=== PATIENT | female | born 1995 | race Caucasian/White ===

== ENCOUNTER 2017-02-04 00:21 | Emergency (ER) | payer MEDICAID, OTHER ==
[~2017-02-04] VITALS: Ht 172.7 cm; Wt 102.5 kg
[2017-02-04] MEDS ORDERED: PANTOPRAZOLE SODIUM 40 MG/VIAL IV STA (01:29)
[2017-02-04] MEDS ORDERED: MORPHINE SULFATE 4 MG/ML CPJ (NOT FOR IM USE) IV STA (01:29)
[2017-02-04] MEDS ORDERED: SODIUM CHLORIDE 0.9% 1,000 ML IV ONE (01:29)
[2017-02-04] MEDS ORDERED: ONDANSETRON HCL 4MG/2ML VIAL IV STA (01:29)
[2017-02-04 01:54] LABS: BASOPHILS % 0.5 % (0.0-2.0); EOSINOPHILS % 0.9 % (0.0-5.0); HEMATOCRIT. 35.2 % (36.0-48.0); LYMPHOCYTES % 28.6 % (20.0-50.0); MEAN CORPUSCULAR HGB CONC 34.1 g/dL (31.0-37.0); MEAN CORPUSCULAR VOLUME 84.8 fL (81.0-99.0); MEAN PLATELET VOLUME 8.7 fl (7.4-10.4); PLATELET 289 x1000/uL (130-400); RED BLOOD CELL COUNT 4.15 mill/uL (4.2-5.4); RED CELL DISTRIBUTION WIDTH 15.5 % (11.6-14.6); WHITE BLOOD COUNT 8.9 x1000/uL (4.5-11.0)
[2017-02-04 01:58] LABS: INR 1.1
[2017-02-04 01:59] LABS: CHLORIDE 106 mEq/L (98-107); INDEX HEMOLYSI 1 (1-3); INDEX ICTERIC 1 (1-4); INDEX LIPEMIC 1 (1-3)
[2017-02-04 02:00] LABS: HCG SCREEN NEGATIVE
[2017-02-04 02:07] LABS: ALANINE AMINOTRANSFERASE 66 IU/L (13-61); ALBUMIN 3.6 g/dL (3.4-5.0); ANION GAP 13; CALCIUM 8.4 mg/dL (8.5-10.1); CARBON DIOXIDE 27 mEq/L (21-32); LIPASE 179 IU/L (73-393); UREA NITROGEN BLOOD 10 mg/dL (7-21); eGFR > 60 mL/min (>60)
[2017-02-04] MEDS ORDERED: ONDANSETRON HCL 4MG/2ML VIAL IM ONE (06:00)
[2017-02-04] MEDS ORDERED: MORPHINE SULFATE 4 MG/ML CPJ (NOT FOR IM USE) IV ONE (06:00)
[2017-02-04 06:22] VITALS: BP 115/58
== END 2017-02-04 08:16 | disposition home or self-care (01) ==
LOC: ER 00:23
DX: R10.11 Right upper quadrant pain (principal); R10.13 Epigastric pain
CPT/HCPCS: 36415; 76705; 80053; 83690; 84703; 85025; 85610; 96361; 96374; 96375; 96376; 99285; C9113; J2270; J2405; J7030

== ENCOUNTER 2017-04-06 22:15 | Emergency (ER) | payer MEDICAID ==
[~2017-04-06] VITALS: Ht 170.2 cm; Wt 98.0 kg
[2017-04-06 22:33] VITALS: BP 123/66
== END 2017-04-07 00:50 | disposition left against medical advice (07) ==
LOC: ER 22:15
DX: S01.511A Laceration without foreign body of lip, initial encounter (principal); Z53.21 Procedure and treatment not carried out due to patient leaving prior to being seen by health care provider; X58.XXXA Exposure to other specified factors, initial encounter; Y93.39 Activity, other involving climbing, rappelling and jumping off; Y92.89 Other specified places as the place of occurrence of the external cause; Y99.8 Other external cause status

== ENCOUNTER 2025-06-08 07:06 | Emergency (ER) | payer MEDICAID ==
[~2025-06-08] VITALS: Ht 172.7 cm; Wt 100.0 kg
[2025-06-08 07:08] VITALS: O2SAT 98
[2025-06-08] MEDS: SODIUM CHLORIDE 0.9% 1,000 ML IV ONE (07:42)
[2025-06-08] MEDS: MORPHINE SULFATE 4 MG/ML INJ (FOR IV/IM USE) IV ONE (07:43)
[2025-06-08] MEDS: ONDANSETRON HCL 4MG/2ML INJ IV ONE (07:43)
[2025-06-08 08:06] LABS: BASOPHILS % 0.8 % (0.0-2.0); EOSINOPHILS % 2.6 % (0.0-5.0); HEMATOCRIT. 36.4 % (36.0-48.0); HEMOGLOBIN. 12.5 g/dL (12.0-16.0); LYMPHOCYTES % 47.3 % (20.0-50.0); MEAN PLATELET VOLUME 7.7 fl (7.4-10.4); MONOCYTES % 8.7 % (2.0-8.0); NEUTROPHILS % 40.6 % (40.0-76.0); PLATELET 328 x1000/uL (130-400); RED BLOOD CELL COUNT 3.94 mill/uL (4.2-5.4); RED CELL DISTRIBUTION WIDTH 13.3 % (11.6-14.6)
[2025-06-08 08:16] LABS: CREATININE 0.6 mg/dL (0.6-1.0)
[2025-06-08 08:17] LABS: UREA NITROGEN BLOOD 17 mg/dL (9-23)
[2025-06-08 08:18] LABS: ASPARTATE AMINOTRANSFERASE 17 IU/L (<34)
[2025-06-08 08:19] LABS: BILIRUBIN DIRECT 0.1 mg/dL (<=3.0); BILIRUBIN TOTAL 0.3 mg/dL (0.1-1.0); PROTEIN TOTAL 6.4 g/dL (6.0-8.3)
[2025-06-08] MEDS ORDERED: ONDA4TAB50 PO (09:14)
[2025-06-08] MEDS ORDERED: TOPUD PO (09:14)
[2025-06-08 10:18] VITALS: BP 140/68; PULSE 81; RESP 15; TEMP 36.6; O2SAT 98
== END 2025-06-08 10:19 | disposition home or self-care (01) ==
LOC: ER 07:20 → CANBEDREQ 09:31 → ER 10:19
DX: K80.70 Calculus of gallbladder and bile duct without cholecystitis without obstruction (principal); Z79.899 Other long term (current) drug therapy
CPT/HCPCS: 80076; 80048; 83690; 85025; 36415; 76705; 96361; 96374; 96375; 99285; J2405; J2270; J7030; Z7610 ×4

== ENCOUNTER 2025-07-02 04:31 | Emergency (ER) | payer MEDICAID ==
[~2025-07-02] VITALS: Ht 177.8 cm; Wt 100.0 kg
[~2025-07-02 04:31] MED LIST: ONDA4TAB50 PO; TOPUD PO
[2025-07-02 04:36] VITALS: O2SAT 99
[2025-07-02] MEDS: ONDANSETRON HCL 4MG/2ML INJ IV ONE (05:20)
[2025-07-02] MEDS: MORPHINE SULFATE 4 MG/ML INJ (FOR IV/IM USE) IV ONE (05:20)
[2025-07-02 05:26] LABS: BASOPHILS % 1.8 % (0.0-2.0); EOSINOPHILS % 2.6 % (0.0-5.0); HEMATOCRIT. 35.7 % (36.0-48.0); HEMOGLOBIN. 12.3 g/dL (12.0-16.0); LYMPHOCYTES % 48.3 % (20.0-50.0); MEAN PLATELET VOLUME 8.2 fl (7.4-10.4); MONOCYTES % 7.0 % (2.0-8.0); NEUTROPHILS % 40.3 % (40.0-76.0); PLATELET 374 x1000/uL (130-400); RED BLOOD CELL COUNT 3.85 mill/uL (4.2-5.4); RED CELL DISTRIBUTION WIDTH 12.8 % (11.6-14.6)
[2025-07-02 05:37] LABS: HCG SCREEN NEGATIVE
[2025-07-02 05:39] LABS: CREATININE 0.6 mg/dL (0.6-1.0)
[2025-07-02 05:40] LABS: UREA NITROGEN BLOOD 8 mg/dL (9-23)
[2025-07-02 05:41] LABS: ASPARTATE AMINOTRANSFERASE 23 IU/L (<34)
[2025-07-02 05:42] LABS: BILIRUBIN DIRECT 0.1 mg/dL (<=3.0); BILIRUBIN TOTAL 0.3 mg/dL (0.1-1.0); PROTEIN TOTAL 6.4 g/dL (6.0-8.3)
[2025-07-02 06:50] VITALS: BP 132/77; PULSE 83; RESP 16; TEMP 36.8; O2SAT 100
== END 2025-07-02 07:05 | disposition home or self-care (01) ==
LOC: ER 04:31
DX: K80.20 Calculus of gallbladder without cholecystitis without obstruction (principal)
CPT/HCPCS: 80076; 80048; 84703; 83690; 85025; 36415; 76705; 96374; 96375; 99285; J2405; J2270; Z7610 ×2